=== PATIENT | male | born 1975 | race Caucasian/White ===

== ENCOUNTER 2021-04-09 10:22 | Emergency (ER) | payer BC, OTHER ==
[~2021-04-09] VITALS: Ht 162.6 cm; Wt 77.0 kg
[~2021-04-09 10:22] MED LIST: AMLO5TAB4 PO; ASPI-1497 PO; ATOR-2 PO; CLOP75TA33 PO; NITR0.4T49 SL; OMEP40CA12 PO
[2021-04-09] MEDS ORDERED: ACETAMINOPHEN 325MG TABLET PO ONE (11:15)
[2021-04-09] MEDS ORDERED: IBUPROFEN 400MG TABLET PO ONE (11:15)
[2021-04-09 11:24] LABS: CLARITY URINE CLEAR (CLEAR); COLOR URINE YELLOW (YELLOW); KETONES URINE NEGATIVE (NEGATIVE); LEUKOCYTE ESTERASE URINE NEGATIVE (NEGATIVE); NITRITE URINE NEGATIVE (NEGATIVE); OCCULT BLOOD URINE NEGATIVE (NEGATIVE); PH URINE 7.5 (4.5-8.0); PROTEIN URINE NEGATIVE (NEGATIVE); UROBILINOGEN URINE 0.2 E.U./dL (0.2-1.0)
[2021-04-09] MEDS ORDERED: TAMS-11 MT (12:55)
[2021-04-09 13:20] VITALS: BP 151/91
== END 2021-04-09 13:20 | disposition home or self-care (01) ==
LOC: ER 10:22
DX: R30.0 Dysuria (principal); I10 Essential (primary) hypertension; E78.5 Hyperlipidemia, unspecified
CPT/HCPCS: 81003; 99283